=== PATIENT | female | born 1965 | race Two or more races ===

== ENCOUNTER → 2020-07-07 10:00 | Outpatient (BNVA) | payer MEDICAID, SELFPAY | PROVIDERS: Visit Provider Internal Medicine Endocrinology, Diabetes & Metabolism | DX: E11.65 Type 2 diabetes mellitus with hyperglycemia (principal); E11.319 Type 2 diabetes mellitus with unspecified diabetic retinopathy without macular edema; E11.21 Type 2 diabetes mellitus with diabetic nephropathy; Z79.4 Long term (current) use of insulin; E78.5 Hyperlipidemia, unspecified; I10 Essential (primary) hypertension; E87.1 Hypo-osmolality and hyponatremia; E53.8 Deficiency of other specified B group vitamins; E55.9 Vitamin D deficiency, unspecified; Z79.899 Other long term (current) drug therapy | CPT/HCPCS: 99212 ==

== ENCOUNTER 2020-07-13 07:31 | Outpatient (REF) | payer MEDICAID, SELFPAY ==
[2020-07-13 08:07] LABS: Estimated Average Glucose 171 mg/dL; Hemoglobin A1c % 7.6 %
[2020-07-13 08:18] LABS: Alanine Aminotransferase 21 U/L (0-31); Albumin Level 4.4 g/dL (3.5-5.0); Alkaline Phosphatase 71 U/L (39-117); Anion Gap 10 (12-20); Aspartate Amino Transferase 14 U/L (5-31); Bilirubin Total 0.7 mg/dL (0.0-1.0); Blood Urea Nitrogen 9 mg/dL (9-16); Calcium 9.1 mg/dL (8.4-10.2); Carbon Dioxide 29 mmol/L (22-29); Chloride 97 mmol/L (96-108); Cholesterol 165 mg/dL; Estimated Glomerular Filt Rate > 60; Glucose Fasting 139 mg/dL (60-99); HDL Cholesterol 70 mg/dL; LDL Cholesterol Calculated 79 mg/dl; Potassium 4.3 mmol/l (3.3-5.1); Sodium 132 mmol/L (135-145); Triglycerides 80 mg/dL
[2020-07-13 08:43] LABS: Creatinine Urine 30.77 mg/dL; Microalbum/Creatinine Ratio Ur 74.7 ug/mg cr
[2020-07-13 08:48] LABS: Vitamin B12 455 pg/mL (200-900)
[2020-07-14 19:22] LABS: LDL Cholesterol Direct 83 mg/dL (<100)
== END 2020-07-13 07:32 | disposition home or self-care (01) ==
LOC: HO.LAB 07:31
PROVIDERS: Visit Provider Internal Medicine Endocrinology, Diabetes & Metabolism
DX: E11.65 Type 2 diabetes mellitus with hyperglycemia (principal); E55.9 Vitamin D deficiency, unspecified
CPT/HCPCS: 80053; 80061; 82043; 82306; 82607; 83036; 83721

== ENCOUNTER 2021-02-10 10:38 | Outpatient (REF) | payer MEDICAID, SELFPAY ==
[2021-02-10 12:26] LABS: Hematocrit 33.8 % (37-47); Hemoglobin 11.6 g/dl (12.0-16.0); Mean Corpuscular HGB Conc 34.3 g/dl (31.0-35.0); Mean Corpuscular Hemoglobin 29.7 pg (27.0-33.0); Mean Corpuscular Volume 86.7 fL (80-98); Mean Platelet Volume 9.8 fL (9.4-12.3); Platelet Count 404 X10*3/uL (160-400); Red Cell Distribution Width 13.1 % (11.0-16.0); White Blood Count 7.5 X10*3/uL (4.8-10.8)
[2021-02-10 13:39] LABS: Vitamin B12 235 pg/mL (200-900)
[2021-02-10 13:42] LABS: Creatinine Urine 28.79 mg/dL; Microalbum/Creatinine Ratio Ur 17.3 ug/mg cr
[2021-02-10 13:43] LABS: Alanine Aminotransferase 23 U/L (0-31); Albumin Level 4.5 g/dL (3.5-5.0); Alkaline Phosphatase 70 U/L (39-117); Anion Gap 15 (12-20); Aspartate Amino Transferase 15 U/L (5-31); Bilirubin Total 0.4 mg/dL (0.0-1.0); Blood Urea Nitrogen 9 mg/dL (9-16); Calcium 9.8 mg/dL (8.4-10.2); Carbon Dioxide 25 mmol/L (22-29); Chloride 98 mmol/L (96-108); Cholesterol 160 mg/dL; Estimated Glomerular Filt Rate > 60; Glucose Random 103 mg/dL (60-115); HDL Cholesterol 63 mg/dL; LDL Cholesterol Calculated 75 mg/dl; Potassium 4.5 mmol/L (3.3-5.1); Sodium 133 mmol/L (135-145); Triglycerides 110 mg/dL
[2021-02-10 14:06] LABS: Free T4 (Free Thyroxine) 1.23 ng/dL (0.71-1.85); Thyroid Stimulating Hormone 0.54 uIU/mL (0.32-4.0)
[2021-02-11 09:27] LABS: LDL Cholesterol Direct 80 mg/dL (<100)
== END 2021-02-10 10:39 | disposition home or self-care (01) ==
LOC: HO.LAB 10:38
PROVIDERS: PCP Physician Assistant Medical; Visit Provider Internal Medicine Endocrinology, Diabetes & Metabolism
DX: E11.65 Type 2 diabetes mellitus with hyperglycemia (principal); E11.21 Type 2 diabetes mellitus with diabetic nephropathy; E78.5 Hyperlipidemia, unspecified; E87.1 Hypo-osmolality and hyponatremia; E53.8 Deficiency of other specified B group vitamins; E55.9 Vitamin D deficiency, unspecified; I10 Essential (primary) hypertension; Z79.4 Long term (current) use of insulin; Z71.3 Dietary counseling and surveillance
CPT/HCPCS: 36415; 80053; 80061; 82043; 82607; 82947; 83721; 84439; 84443; 85027; 99212

== ENCOUNTER → 2021-02-22 14:11 | Outpatient (BNVA) | payer MEDICAID, SELFPAY | PROVIDERS: PCP Physician Assistant Medical; Visit Provider Urology | DX: N39.0 Urinary tract infection, site not specified (principal) | CPT/HCPCS: 99212 ==

== ENCOUNTER → 2021-06-14 08:38 | Outpatient (BNVA) | payer MEDICAID, SELFPAY | PROVIDERS: PCP Physician Assistant Medical; Visit Provider Nurse Practitioner Gerontology | DX: E11.65 Type 2 diabetes mellitus with hyperglycemia (principal); E11.21 Type 2 diabetes mellitus with diabetic nephropathy; E78.5 Hyperlipidemia, unspecified; E53.8 Deficiency of other specified B group vitamins; E55.9 Vitamin D deficiency, unspecified; I10 Essential (primary) hypertension; Z79.4 Long term (current) use of insulin | CPT/HCPCS: 82947; 83036; 99212 ==

== ENCOUNTER 2021-07-05 08:29 | Outpatient (REF) | payer MEDICAID, SELFPAY ==
[2021-07-05 09:56] LABS: Alanine Aminotransferase 15 U/L (0-31); Albumin Level 4.5 g/dL (3.5-5.0); Alkaline Phosphatase 72 U/L (39-117); Anion Gap 10 (12-20); Aspartate Amino Transferase 14 U/L (5-31); Bilirubin Total 0.5 mg/dL (0.0-1.0); Blood Urea Nitrogen 10 mg/dL (9-16); Calcium 9.4 mg/dL (8.4-10.2); Carbon Dioxide 30 mmol/L (22-29); Chloride 98 mmol/L (96-108); Estimated Glomerular Filt Rate > 60; Glucose Fasting 145 mg/dL (60-99); Sodium 133 mmol/L (135-145); Total Protein 7.1 g/dL (6.5-8.0)
[2021-07-05 10:17] LABS: Vitamin D 25-OH Total 46.5 ng/mL (>30)
[2021-07-05 11:09] LABS: Vitamin B12 252 pg/mL (200-900)
== END 2021-07-05 08:30 | disposition home or self-care (01) ==
LOC: HO.LAB 08:29
PROVIDERS: PCP Physician Assistant Medical; Visit Provider Nurse Practitioner Gerontology
DX: E11.65 Type 2 diabetes mellitus with hyperglycemia (principal); E55.9 Vitamin D deficiency, unspecified
CPT/HCPCS: 36415; 80053; 82306; 82607

== ENCOUNTER 2021-08-23 09:19 | Outpatient (REF) | payer MEDICAID, SELFPAY ==
--- NOTE | ~2021-08-23 | MM_ITS ---
EXAMINATION: MM SCREENING DIGITAL BREAST TOMOSYNTHESIS, BILATERAL CLINICAL INFORMATION: Screening. Asymptomatic. The lifetime risk of breast cancer based on the Tyrer-Cuzick Model is 6%. COMPARISON: Mammography: 03/14/2018 (new baseline). TECHNIQUE: Digital breast tomosynthesis is performed in both the craniocaudal and mediolateral oblique views along with computer-aided detection (CAD). Synthesized 2D images are generated from the tomosynthesis. Additional exaggerated right CC view is provided. FINDINGS: There are scattered areas of fibroglandular density (ACR BI-RADS breast composition Category b). Breast tissue composition borders on heterogeneously dense fine fibronodular parenchymal pattern is similar to prior new baseline exam. There are no significant masses, abnormal calcifications, or other abnormalities. No interval mass or architectural abnormality or abnormal calcifications. The axilla and skin contours are unremarkable. No significant changes. MM/MM tomosynthesis screening BI IMPRESSION: No mammographic evidence of malignancy. ASSESSMENT: BI-RADS 2: Benign RECOMMENDATION: Routine annual mammography screening. This patient's information was entered into a reminder system with a target due date for their next mammogram.
== END 2021-08-23 09:20 | disposition home or self-care (01) ==
LOC: HO.MAMMO 09:19
PROVIDERS: Visit Provider Physician Assistant Medical
DX: Z12.31 Encounter for screening mammogram for malignant neoplasm of breast (principal)
CPT/HCPCS: 77063; 77067

== ENCOUNTER → 2021-10-04 09:42 | Outpatient (BNVA) | payer MEDICAID, SELFPAY | PROVIDERS: PCP Physician Assistant Medical | DX: N39.0 Urinary tract infection, site not specified (principal) | CPT/HCPCS: 99212 ==

== ENCOUNTER → 2022-01-10 11:17 | Outpatient (BNVA) | payer MEDICAID, SELFPAY | PROVIDERS: PCP Physician Assistant Medical; Visit Provider Nurse Practitioner Gerontology | DX: E11.65 Type 2 diabetes mellitus with hyperglycemia (principal); E11.21 Type 2 diabetes mellitus with diabetic nephropathy; E78.5 Hyperlipidemia, unspecified; E53.8 Deficiency of other specified B group vitamins; E55.9 Vitamin D deficiency, unspecified; I10 Essential (primary) hypertension; Z79.4 Long term (current) use of insulin; Z79.84 Long term (current) use of oral hypoglycemic drugs | CPT/HCPCS: 82947; 83036; 99212 ==

== ENCOUNTER 2022-01-17 07:34 | Outpatient (REF) | payer MEDICAID, SELFPAY ==
[2022-01-17 08:46] LABS: Alanine Aminotransferase 19 U/L (0-31); Albumin Level 4.3 g/dL (3.5-5.0); Alkaline Phosphatase 68 U/L (39-117); Anion Gap 12 (12-20); Aspartate Amino Transferase 14 U/L (5-31); Bilirubin Total 0.6 mg/dL (0.0-1.0); Blood Urea Nitrogen 8 mg/dL (9-16); Carbon Dioxide 28 mmol/L (22-29); Chloride 101 mmol/L (96-108); Cholesterol 165 mg/dL; Estimated Glomerular Filt Rate > 60; Glucose Fasting 150 mg/dL (60-99); HDL Cholesterol 66 mg/dL; LDL Cholesterol Calculated 86 mg/dl; Potassium 4.7 mmol/L (3.3-5.1); Sodium 136 mmol/L (135-145); Total Protein 7.2 g/dL (6.5-8.0); Triglycerides 67 mg/dL
[2022-01-17 09:09] LABS: Vitamin D 25-OH Total 41.8 ng/mL (>30)
[2022-01-17 10:57] LABS: Creatinine Urine 27.67 mg/dL; Microalbumin Urine < 5.0 mg/L
[2022-01-19 00:20] LABS: LDL Cholesterol Direct 79 mg/dL (<100)
== END 2022-01-17 07:35 | disposition home or self-care (01) ==
LOC: HO.LAB 07:34
PROVIDERS: Visit Provider Nurse Practitioner Gerontology
DX: E11.21 Type 2 diabetes mellitus with diabetic nephropathy (principal); E55.9 Vitamin D deficiency, unspecified
CPT/HCPCS: 36415; 80053; 80061; 82043; 82306; 83721

== ENCOUNTER → 2022-07-31 09:21 | Outpatient (BNVA) | payer MEDICAID, SELFPAY | PROVIDERS: PCP Physician Assistant Medical; Visit Provider Urology | DX: N39.0 Urinary tract infection, site not specified (principal) | CPT/HCPCS: 51798; 99212 ==

== ENCOUNTER 2022-08-25 09:05 | Outpatient (REF) | payer MEDICAID, SELFPAY ==
--- NOTE | ~2022-08-25 | MM_ITS ---
EXAMINATION: MM SCREENING DIGITAL BREAST TOMOSYNTHESIS, BILATERAL CLINICAL INFORMATION: Screening. Asymptomatic. The lifetime risk of breast cancer based on the Tyrer-Cuzick Model is 5.9%. COMPARISON: Mammography: August 23, 2021 and March 14, 2018 TECHNIQUE: Digital breast tomosynthesis is performed in both the craniocaudal and mediolateral oblique views along with computer-aided detection (CAD). Synthesized 2D images are generated from the tomosynthesis. FINDINGS: The breasts are extremely dense, which lowers the sensitivity of mammography (ACR BI-RADS breast composition Category d). There are no new significant masses, abnormal calcifications, or other abnormalities. MM/MM tomosynthesis screening BI IMPRESSION: No significant changes ASSESSMENT: BI-RADS 1: Negative RECOMMENDATION: Routine annual mammography screening. This patient's information was entered into a reminder system with a target due date for their next mammogram.
== END 2022-08-25 09:06 | disposition home or self-care (01) ==
LOC: HO.MAMMO 09:05
PROVIDERS: PCP Physician Assistant Medical; Visit Provider Physician Assistant Medical
DX: Z12.31 Encounter for screening mammogram for malignant neoplasm of breast (principal)
CPT/HCPCS: 77063; 77067

== ENCOUNTER → 2023-01-23 10:27 | Outpatient (BNVA) | payer OTHER, SELFPAY | PROVIDERS: PCP Physician Assistant Medical; Visit Provider Nurse Practitioner Family | DX: N39.0 Urinary tract infection, site not specified (principal); E11.65 Type 2 diabetes mellitus with hyperglycemia; E11.21 Type 2 diabetes mellitus with diabetic nephropathy; I10 Essential (primary) hypertension; E78.5 Hyperlipidemia, unspecified; Z79.4 Long term (current) use of insulin | CPT/HCPCS: 51798; 99212 ==

== ENCOUNTER 2023-02-26 09:44 | Outpatient (REF) | payer OTHER, SELFPAY ==
--- NOTE | ~2023-02-26 | US_ITS ---
EXAMINATION: US RETROPERITONEAL COMPLETE (RENAL) CLINICAL INFORMATION: Urinary tract infection, site not specified. COMPARISON: CT abdomen and pelvis without contrast 07/22/2018. TECHNIQUE: Real-time imaging of the kidneys and bladder. FINDINGS: RIGHT KIDNEY: 10.5 x 4.7 x 5.4 cm (SAG x AP x TRV). The kidney is normal in size, contour, and echogenicity. Renal cortical thickness is normal. No calculi or focal parenchymal lesions. No hydronephrosis. LEFT KIDNEY: 10.9 x 5.5 x 5.2 cm (SAG x AP x TRV). The kidney is normal in size, contour, and echogenicity. Renal cortical thickness is normal. No calculi or focal parenchymal lesions. No hydronephrosis. BLADDER: Well distended and normal. Bilateral ureteral jets are demonstrated. Prevoid bladder volume is 275 mL. Postvoid bladder volume is 276 mL. US/US retroperitoneal comp IMPRESSION: Normal-appearing kidneys. Postvoid volume of the bladder with larger than the prevoid volume indicative of the fact that the patient probably had difficulty voiding with a large postvoid residual.
== END 2023-02-26 09:45 | disposition home or self-care (01) ==
LOC: HO.US 09:44
PROVIDERS: PCP Physician Assistant Medical; Visit Provider Nurse Practitioner Family
DX: N39.0 Urinary tract infection, site not specified (principal)
CPT/HCPCS: 76770

== ENCOUNTER 2023-03-13 09:26 | Outpatient (AMB) | payer OTHER, SELFPAY ==
--- NOTE | 2023-03-13 09:38 | A.OFFVIS_ITS ---
Intake Intake Visit Reasons: 6w/US(SET) Intake Note: Patient is present for follow up recurrent uti/ultrasound (imaging 02/26) Urology Medications: macrobid, estrace cream Blood Thinner: none PVR: 7ml's Lime Burner Required: Yes Lime Burner Name: Altagracia [id number] Accompanied by: Spouse Allergies No Known Allergies [No Known Allergies*] Allergy (Verified 03/13/23 10:13) Medication List - Last Reconciled 03/13/23 by EPIFANIO Cartwright amlodipine 5 mg PO DAILY atorvastatin 10 mg PO BEDTIME 90 days blood sugar diagnostic (FreeStyle Lite Strips) four times a day cholecalciferol (vitamin D3) 50 mcg PO DAILY cyanocobalamin (vitamin B-12) 500 mcg sublingual .Every other Day 90 days dapagliflozin propanediol (Farxiga) 10 mg PO DAILY estradiol 0.01%(0.1mg/gram) vaginally 3 times a week; pea sized amount to urethra 3 times a week FreeStyle Lancets (lancets) 3 times a day NS insulin degludec (Tresiba FlexTouch U-100 insulin) 12 units (0.12 mL) subcut BEDTIME 90 days insulin lispro-aabc (Lyumjev KwikPen U-100 Insulin) 3 - 4 units (0.03 - 0.04 mL) subcut TID 90 days losartan 100 mg PO DAILY losartan 100 mg PO DAILY metformin 1,000 mg PO BID 90 days nitrofurantoin macrocrystal 50 mg PO BEDTIME 90 days pen needle, diabetic (BD Ultra-Fine Trisha Pen Needle) As directed four times a day HPI HPI Comments History of Present Illness Details Josy is a pleasant 57-year-old female patient of Dr. Poe who is accompanied by her at todays visit. She presents to the office today for a follow up her recurrent UTI. Of note, [facility] at which time a retroparitoneal ultrasound was ordered for further assessment and evaluation. She has a PMH of Diabetes, HTN, and dyslipidemia. When asked patient reports do be doing and feeling well. Recent retroperitoneal ultrasound results reviewed with the patient her today. Bilateral kidneys with no calculi, lesions, and or hydronephrosis. The bladder is well distended and normal. She reports since her last office visit here approximately 6 weeks ago feeling her symptoms of dysuria has since improved. She reports she continues with compliance of Estrace cream daily. She otherwise denies urinary urgency, urinary frequency, incontinence, nocturia, hematuria, foul smelling urine, changes to urinary stream, flank pain, fever, and or chills. In office urinalysis results reviewed with the patient today. PVR 7ml's. Discussed at length importance of managing diabetes for continuation in improvement in urinary symptoms as well as overall health and well-being. She otherwise offers no issues or concerns at this time. [facility] Medical History B12 deficiency Diabetes type 2, uncontrolled Diabetic nephropathy associated with type 2 diabetes mellitus Dyslipidemia Hypertension Hyponatremia senior care (current) use of insulin Vitamin D deficiency Surgical History Hx of cataract surgery Family History Father Gastric cancer Mother Diabetes Social History Household Members: Spouse Alcohol intake: never Patient Tobacco Use Status: Never used Tobacco Review of Systems Const All systems reviewed & are unremarkable except as noted in HPI and below Reports as per HPI Eyes Reports no additional complaints ENT Reports no additional complaints Card Reports no additional complaints Resp Reports no additional complaints GI Reports no additional complaints Reports as per HPI Musc Reports no additional complaints Neuro Reports no additional complaints Psych Reports no additional complaints Endo Reports as per HPI Butch/Lymph Reports no additional complaints Aller/Immun Reports no additional complaints Physical Exam Const General: cooperative, healthy appearing, comfortable, no acute distress, well developed, alert and awake Orientation/consciousness: patient oriented x3 Limitations: no limitations HEENT Head: Yes normal to inspection, Yes normocephalic and Yes atraumatic Ears: hearing grossly normal bilaterally Eyes General: appearance normal, both eyes and all related structures Neck Neck: Yes normal visual inspection and Yes trachea midline Chest Chest palpation & inspection: normal inspection of the chest Resp Effort & Inspection: normal respiratory effort and able to speak in complete sentences Cardio Rate: regular rate GI Inspection: Yes normal to inspection General: Yes no CVA tenderness Back/Spine/Pelvis Back: no CVA tenderness Skin General skin exam: no rashes or lesions noted Neuro General: patient oriented x3 Extrem General: Yes normal to inspection Psych Appearance: grossly normal and well kempt Mental Status: mental status grossly normal Speech and movement: Normal speech and movement present and Clear speech present Affect: normal affect Attitude: cooperative Thought process: Normal thought process present Thought content: Normal thought content present Insight: Fair insight present (Psych) Judgement: Fair judgement present (Psych) Office Procedures Post Void Residual Post Residual Void Post Void Residual (PVR): [id number] Void Residual by ultrasound Results AMB Urinalysis, Automated UA Leukoctes 0 Grabiel/uL Last Edit by [facility] on 03/13/23 09:52 UA Nitrite Negative Last Edit by [facility] on 03/13/23 09:52 UA Urobilinogen 0.2 mg/dL Last Edit by [facility] on 03/13/23 09:52 UA Protein 0 mg/dL Last Edit by [facility] on 03/13/23 09:52 UA pH 6.0 Last Edit by [facility] on 03/13/23 09:52 UA Blood 0 Terrell/uL Last Edit by [facility] on 03/13/23 09:52 UA Specific Hume 1.010 Last Edit by [facility] on 03/13/23 09:52 UA Ketone Negative Last Edit by [facility] on 03/13/23 09:52 UA Bilirubin 0 mg/dL Last Edit by [facility] on 03/13/23 09:52 UA Glucose 0 mg/dL Last Edit by [facility] on 03/13/23 09:52 Results Reviewed Results Reviewed: Laboratory Last Values Urine pH (Auto) 6.0 03/13/23 09:40 Specific Hume (Auto) 1.010 03/13/23 09:40 Urine Protein (Auto) 0 mg/dL 03/13/23 09:40 Glucose (UA)(Auto) 0 mg/dL 03/13/23 09:40 Urine Ketones (Auto) Negative 03/13/23 09:40 Urine Blood (Auto) 0 Terrell/uL 03/13/23 09:40 Urine Nitrite (Auto) Negative 03/13/23 09:40 Urine Bilirubin (Auto) 0 mg/dL 03/13/23 09:40 Urine Urobilinogen (Auto) 0.2 mg/dL 03/13/23 09:40 Leukocyte Esterase (Auto) 0 Grabiel/uL 03/13/23 09:40 Date of Service: 02/26/23 EXAMINATION: US RETROPERITONEAL COMPLETE (RENAL) FINDINGS: RIGHT KIDNEY: 10.5 x 4.7 x 5.4 cm (SAG x AP x TRV). The kidney is normal in size, contour, and echogenicity. Renal cortical thickness is normal. No calculi or focal parenchymal lesions. No hydronephrosis. LEFT KIDNEY: 10.9 x 5.5 x 5.2 cm (SAG x AP x TRV). The kidney is normal in size, contour, and echogenicity. Renal cortical thickness is normal. No calculi or focal parenchymal lesions. No hydronephrosis. BLADDER: Well distended and normal. Bilateral ureteral jets are demonstrated. Prevoid bladder volume is 275 mL. Postvoid bladder volume is 276 mL. IMPRESSION: Normal-appearing kidneys. Postvoid volume of the bladder with larger than the prevoid volume indicative of the fact that the patient probably had difficulty voiding with a large postvoid residual. Assessment & Plan Assessment & Plan (1) Recurrent UTI (urinary tract infection): Code(s): N39.0 - Urinary tract infection, site not specified (2) Dysuria: Code(s): R30.0 - Dysuria Plan In office urinalysis results reviewed with the patient and her today; as noted above. PVR 7 mL. Discussed recent retroperitoneal ultrasound results with the patient and her today; as noted above. Patient reports significant improvement in dysuria since her last office visit and denies any UTI like symptoms at this time. Discussed at length importance of managing diabetes for continuation and i mprovement in urinary symptoms as well as for overall health and well-being. Continue Estrace cream as discussed and prescribed. Discussed, educated, and encouraged to continue drinking plenty of water daily. Follow-up in 6 months with PVR; or sooner with any issues, concerns, and or questions. Orders: Orders AMB Urinalysis Automated Today Z13.9 - Encounter for screening, unspecified AMB Post Void Residual by ultrasound Today N39.0 - Urinary tract infection, site not specified Patient Instructions: The patient had an opportunity to ask questions regarding the treatment plan. All questions were answered. Physical exam, labs, and imaging were discussed and reviewed in detail. As well as risks, benefits, and discussion of treatment choices. No major barriers to understanding were identified. The patient expressed understanding and agreement with the above treatment plan. The patient was made aware they should contact our office by phone for worsening of their current condition, the appearance of new symptoms, or with any questions or concerns. Compliance is encouraged with any medications and follow up testing that is ordered. It is a privilege to be allowed the opportunity to participate in? your urological care.? Again, if you have any questions or concerns If you have any questions or concerns please do not hesitate to contact me. The office is [phone]. This note is constructed using voice recognition software. While every effort has been made to ensure accuracy animal husbandman errors may have been included. Yours sincerely, EPIFANIO Cartwright Coding Level of Care Code Est Pt Level 4 (80952) Diagnoses Recurrent UTI (urinary tract infection) N39.0 Dysuria R30.0 CPT Codes Post Residual Void - PVR CPT Code: 76532-Nujp Void Residual by ultrasound ([id number]) Time Spent (min) 40
== END 2023-03-13 10:29 | disposition home or self-care (01) ==
PROVIDERS: Visit Provider Nurse Practitioner Family
DX: N39.0 Urinary tract infection, site not specified (principal); R30.0 Dysuria
CPT/HCPCS: 99214

== ENCOUNTER → 2023-03-13 09:26 | Outpatient (BNVA) | payer OTHER, SELFPAY | PROVIDERS: Visit Provider Nurse Practitioner Family | DX: N39.0 Urinary tract infection, site not specified (principal); R30.0 Dysuria; E11.9 Type 2 diabetes mellitus without complications; I10 Essential (primary) hypertension; E78.5 Hyperlipidemia, unspecified; Z79.4 Long term (current) use of insulin; Z79.899 Other long term (current) drug therapy | CPT/HCPCS: 51798; 99212 ==

== ENCOUNTER → 2023-08-31 09:15 | Outpatient (BNV) | payer OTHER, SELFPAY | PROVIDERS: Visit Provider Radiology Diagnostic Radiology | DX: Z12.31 Encounter for screening mammogram for malignant neoplasm of breast (principal) | CPT/HCPCS: 77063; 77067 ==

== ENCOUNTER 2023-08-31 09:17 | Outpatient (REF) | payer OTHER, SELFPAY ==
--- NOTE | ~2023-08-31 | MM_ITS ---
EXAMINATION: MM SCREENING DIGITAL BREAST TOMOSYNTHESIS, BILATERAL CLINICAL INFORMATION: Screening. Asymptomatic. COMPARISON: Mammography: 08/25/2022, 08/23/2021, 03/14/2018. TECHNIQUE: Digital breast tomosynthesis is performed in both the craniocaudal and mediolateral oblique views along with computer-aided detection (CAD). Synthesized 2D images are generated from the tomosynthesis. FINDINGS: The breasts are heterogeneously dense, which may obscure small masses (ACR BI-RADS breast composition Category c). There are bilateral scattered punctate skin calcifications. There are no suspicious masses, suspicious grouped calcifications, or areas of architectural distortion in either breast. The parenchymal pattern is stable from prior exams. MM/MM tomosynthesis screening BI IMPRESSION: No mammographic evidence of malignancy. ASSESSMENT: BI-RADS BI-RADS 1 - Negative RECOMMENDATION: Routine annual mammography screening. 1 year F/U This examination should not preclude the clinical evaluation of a suspicious palpable abnormality. This patient's information was entered into a reminder system with a target due date for their next mammogram.
== END 2023-08-31 09:18 | disposition home or self-care (01) ==
LOC: HO.MAMMO 09:17
PROVIDERS: Visit Provider Physician Assistant Medical
DX: Z12.31 Encounter for screening mammogram for malignant neoplasm of breast (principal)
CPT/HCPCS: 77063; 77067

== ENCOUNTER 2023-10-15 10:48 | Outpatient (REF) | payer OTHER, SELFPAY ==
[2023-10-15 13:01] LABS: Appearance Urine Clear; Color Urine Yellow; Glucose Urine UA >=1000 mg/dL (Negative); Leukocyte Esterase Urine Moderate (2+) (Negative); Nitrite Urine Positive (Negative); Specific Gravity - Urine 1.015 (1.005-1.025); UMIC TRIGGER UA YES; Urine Blood Negative (Negative); Urine Ketones Negative (Negative); Urine Protein Negative (Neg-Trace)
[2023-10-15 13:05] LABS: Bacteria Urine 4+ (None Seen); Hyaline Casts Urine 0-2 /LPF (0-2); RBC Urine 0-2 /HPF (0-2); Squamous Epithelial Cell Urine 0-2 /HPF (0-2); WBC Urine 21-50 /HPF (0-5)
== END 2023-10-15 10:49 | disposition home or self-care (01) ==
LOC: HO.LAB 10:48
PROVIDERS: Visit Provider Nurse Practitioner Family
DX: N39.0 Urinary tract infection, site not specified (principal)
CPT/HCPCS: 81001; 87086; 87088; 87186

== ENCOUNTER 2023-10-17 10:21 | Outpatient (AMB) | payer OTHER, SELFPAY ==
--- NOTE | 2023-10-17 10:36 | MHC.OFFVIS ---
Intake Intake Visit Reasons: F/U Intake Note: Patient is present for follow up recurrent uti and dysuria Urology Medications: estrace cream Blood Thinner: none PVR: 264 Structural Design Engineer Required: Yes Structural Design Engineer Name: [id number] Accompanied by: Allergies No Known Allergies [No Known Allergies*] Allergy (Verified 10/17/23 21:00) Medication List - Last Reconciled 10/17/23 by MC Cartwright-ALAN amlodipine 5 mg PO DAILY atorvastatin 10 mg PO BEDTIME 90 days blood sugar diagnostic (FreeStyle Lite Strips) four times a day cholecalciferol (vitamin D3) 50 mcg PO DAILY cyanocobalamin (vitamin B-12) 500 mcg sublingual .Every other Day 90 days dapagliflozin propanediol (Farxiga) 10 mg PO DAILY estradiol (Vagifem) 10 mcg vaginal 2XW 30 days FreeStyle Lancets (lancets) 3 times a day NS insulin degludec (Tresiba FlexTouch U-100 insulin) 12 units (0.12 mL) subcut BEDTIME 90 days insulin lispro-aabc (Lyumjev KwikPen U-100 Insulin) 3 - 4 units (0.03 - 0.04 mL) subcut TID 90 days losartan 100 mg PO DAILY losartan 100 mg PO DAILY metformin 1,000 mg PO BID 90 days nitrofurantoin macrocrystal 50 mg PO BEDTIME 90 days pen needle, diabetic (BD Ultra-Fine Trisha Pen Needle) As directed four times a day sulfamethoxazole-trimethoprim 800-160 mg (Bactrim DS) 1 tab PO BID 7 days HPI HPI Comments History of Present Illness Details Josy is a pleasant 58-year-old Macedonian speaking female patient of Dr. Poe who is accompanied by her at todays visit. She has a PMH of Diabetes, HTN, and dyslipidemia, vitamin-D deficiency, vitamin B12 deficiency, hyponatremia. She presents to the office today for a follow up her recurrent UTI. Of note, patient called the office earlier this week as she has been experiencing dysuria and bladder pressure at which time a urinalysis was ordered for further assessment evaluation. Urine culture results obtained this morning and reviewed with the patient today. E coli susceptible to Bactrim, gentamicin, and ceftriaxone. Resistant to ampicillin and nitrofurantoin. Discussed discontinuation of nitrofurantoin that was initated after sample was obtained and initiation of Bactrim per urine culture results. She does continue to report dysuria and bladder pressure. She otherwise denies incontinence, nocturia, hematuria, foul smelling urine, changes to urinary stream, flank pain, fever, and or chills. When asked she reports she has since stopped Estrace cream as discussed and prescribed as she feels this causes her vaginal itching. Previous workup has included a retroperitoneal ultrasound noting bilateral kidneys with no calculi, lesions, and or hydronephrosis. The bladder is well distended and normal. In office urinalysis results reviewed with the patient today. PVR 264ml's. Discussed at length importance of managing diabetes for continuation in improvement in urinary symptoms as well as overall health and well-being. Discussed at length causes and affects of incomplete bladder emptying. She otherwise offers no issues or concerns at this time. 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 Diabetes type 2, uncontrolled Dyslipidemia Surgical History Hx of cataract surgery Family History Father Gastric cancer Mother Diabetes Social History Household Members: Spouse Alcohol intake: never Patient Tobacco Use Status: Never used Tobacco Review of Systems Const All systems reviewed & are unremarkable except as noted in HPI and below Reports as per HPI Eyes Reports no additional complaints ENT Reports no additional complaints Card Reports no additional complaints Resp Reports no additional complaints GI Reports no additional complaints Reports as per HPI Musc Reports no additional complaints Neuro Reports no additional complaints Psych Reports no additional complaints Endo Reports as per HPI Butch/Lymph Reports no additional complaints Aller/Immun Reports no additional complaints Physical Exam Const General: cooperative, healthy appearing, comfortable, no acute distress, well developed, alert and awake Orientation/consciousness: patient oriented x3 Limitations: no limitations HEENT Head: Yes normal to inspection, Yes normocephalic and Yes atraumatic Ears: hearing grossly normal bilaterally Eyes General: appearance normal, both eyes and all related structures Neck Neck: Yes normal visual inspection and Yes trachea midline Chest Chest palpation & inspection: normal inspection of the chest Resp Effort & Inspection: normal respiratory effort and able to speak in complete sentences Cardio Rate: regular rate GI Inspection: Yes normal to inspection General: Yes no CVA tenderness Back/Spine/Pelvis Back: no CVA tenderness Skin General skin exam: no rashes or lesions noted Neuro General: patient oriented x3 Extrem General: Yes normal to inspection Psych Appearance: grossly normal and well kempt Mental Status: mental status grossly normal Speech and movement: Normal speech and movement present and Clear speech present Affect: normal affect Attitude: cooperative Thought process: Normal thought process present Thought content: Normal thought content present Insight: Fair insight present (Psych) Judgement: Fair judgement present (Psych) Office Procedures Post Void Residual Post Residual Void Post Void Residual (PVR): 0 37938-Pwqa Void Residual by ultrasound Results AMB Urinalysis, Automated UA Leukoctes 15 Grabiel/uL Last Edit by Sabrina Villaseñor CMA on 10/17/23 10:48 UA Nitrite Negative Last Edit by Sabrina Villaseñor CMA on 10/17/23 10:48 UA Urobilinogen 0.2 mg/dL Last Edit by Sabrina Villaseñor CMA on 10/17/23 10:48 UA Protein 0 mg/dL Last Edit by Sabrina Villaseñor CMA on 10/17/23 10:48 UA pH 6.0 Last Edit by Sabrina Villaseñor CMA on 10/17/23 10:48 UA Blood 0 Terrell/uL Last Edit by Sabrina Villaseñor CMA on 10/17/23 10:48 UA Specific [place] 1.010 Last Edit by Sabrina Villaseñor CMA on 10/17/23 10:48 UA Ketone Negative Last Edit by Sabrina Villaseñor CMA on 10/17/23 10:48 UA Bilirubin 0 mg/dL Last Edit by Sabrina Villaseñor CMA on 10/17/23 10:48 UA Glucose 1000 mg/dL Last Edit by Sabrina Villaseñor [facility] on 10/17/23 10:48 Results Reviewed Results Reviewed: Laboratory Last Values Urine pH (Auto) 6.0 10/17/23 10:38 Specific [place] (Auto) 1.010 10/17/23 10:38 Urine Protein (Auto) 0 mg/dL 10/17/23 10:38 Glucose (UA)(Auto) 1000 mg/dL 10/17/23 10:38 Urine Ketones (Auto) Negative 10/17/23 10:38 Urine Blood (Auto) 0 Terrell/uL 10/17/23 10:38 Urine Nitrite (Auto) Negative 10/17/23 10:38 Urine Bilirubin (Auto) 0 mg/dL 10/17/23 10:38 Urine Urobilinogen (Auto) 0.2 mg/dL 10/17/23 10:38 Leukocyte Esterase (Auto) 15 Grabiel/uL 10/17/23 10:38 Assessment & Plan Assessment & Plan (1) Dysuria: Code(s): R30.0 - Dysuria (2) Recurrent UTI (urinary tract infection): Code(s): N39.0 - Urinary tract infection, site not specified (3) Sensation of pressure in bladder area: Code(s): R39.89 - Other symptoms and signs involving the genitourinary system (4) Incomplete bladder emptying: Code(s): R33.9 - Retention of urine, unspecified Plan In office urinalysis results reviewed with the patient and her today; as noted above. PVR 264 mL. Prophylactic Macrobid as discussed. Stop Macrobid 100 mg Start Bactrim as discussed and prescribed. Start Vagifem as discussed and prescribed. Stop Estrace cream as patient reports she has not using this; discussed possible vaginal itching related to glucosuria Discussed at length potential causes and affects of incomplete bladder emptying. Discussed at length importance of managing diabetes for continuation and improvement in urinary symptoms as well as for overall health and well-being. Discussed UTI prevention with D mannose supplement, vitamin-C, increasing fluid intake, behavioral therapy with timed voiding, perineal hygiene and postcoital voiding, and management of constipation with stool softeners and increased fiber intake. Follow-up in 1 month with PVR; or sooner with any issues, concerns, and or questions. Orders: Orders AMB Urinalysis Automated Today R33.9 - Retention of urine, unspecified AMB Post Void Residual by ultrasound Today R33.9 - Retention of urine, unspecified Medications: New sulfamethoxazole-trimethoprim 800-160 mg (Bactrim DS) Hold prophylactic dose while on treatment dose 1 tab PO BID 7 days 14 tabs 0RF N39.0 - Urinary tract infection, site not specified estradiol (Vagifem) 10 mcg vaginal 2XW 30 days 9 tabs 4RF Discontinued estradiol 0.01%(0.1mg/gram) Discontinued Reason: Doctor's Order vaginally 3 times a week; pea sized amount to urethra 3 times a week 42.5 grams 2RF nitrofurantoin macrocrystal must administer with a meal/food Discontinued Reason: Doctor's Order 100 mg PO BID 10 days 20 caps 0RF N39.0 - Urinary tract infection, site not specified Patient Instructions: The patient had an opportunity to ask questions regarding the treatment plan. All questions were answered. Physical exam, labs, and imaging were discussed and reviewed in detail. As well as risks, benefits, and discussion of treatment choices. No major barriers to understanding were identified. The patient expressed understanding and agreement with the above treatment plan. The patient was made aware they should contact our office by phone for worsening of their current condition, the appearance of new symptoms, or with any questions or concerns. Compliance is encouraged with any medications and follow up testing that is ordered. It is a privilege to be allowed the opportunity to participate in? your urological care.? Again, if you have any questions or concerns If you have any questions or concerns please do not hesitate to contact me. The office is [phone]. This note is constructed using voice recognition software. While every effort has been made to ensure accuracy pyrometer operator errors may have been included. Yours sincerely, EPIFANIO Cartwright Coding Level of Care Code Est Pt Level 4 (78510) Diagnoses Dysuria R30.0 Recurrent UTI (urinary tract infection) N39.0 Sensation of pressure in bladder area R39.89 Incomplete bladder emptying R33.9 CPT Codes Post Residual Void - PVR CPT Code: 35088-Nigr Void Residual by ultrasound ([id number])
== END 2023-10-17 11:00 | disposition home or self-care (01) ==
LOC: HO.HUSH 10:21
PROVIDERS: Visit Provider Nurse Practitioner Family
DX: R30.0 Dysuria (principal); N39.0 Urinary tract infection, site not specified; R39.89 Other symptoms and signs involving the genitourinary system; R33.9 Retention of urine, unspecified
CPT/HCPCS: 99214

== ENCOUNTER → 2023-10-17 10:21 | Outpatient (BNVA) | payer OTHER, SELFPAY | PROVIDERS: Visit Provider Nurse Practitioner Family | DX: R30.0 Dysuria (principal); R39.89 Other symptoms and signs involving the genitourinary system; R33.9 Retention of urine, unspecified; N39.0 Urinary tract infection, site not specified | CPT/HCPCS: 51798; 81003; 99212 ==

== ENCOUNTER 2023-11-21 13:50 | Outpatient (AMB) | payer OTHER, SELFPAY ==
--- NOTE | 2023-11-21 14:02 | A.OFFVIS_ITS ---
Intake Intake Visit Reasons: 1m/PVR Intake Note: Patient is present for follow up recurrent uti and dysuria Urology Medications: vagifem Blood Thinner: none PVR: 0ml's Automatic Lump Making Machine Tender Required: Yes Automatic Lump Making Machine Tender Name: Anahi Accompanied by: Allergies No Known Allergies [No Known Allergies*] Allergy (Verified 11/21/23 20:17) Medication List - Last Reconciled 11/21/23 by MC Cartwright-ALAN amlodipine 5 mg PO DAILY atorvastatin 10 mg PO BEDTIME 90 days blood sugar diagnostic (FreeStyle Lite Strips) four times a day cholecalciferol (vitamin D3) 50 mcg PO DAILY cyanocobalamin (vitamin B-12) 500 mcg sublingual .Every other Day 90 days dapagliflozin propanediol (Farxiga) 10 mg PO DAILY estradiol (Vagifem) 10 mcg vaginal 2XW 30 days FreeStyle Lancets (lancets) 3 times a day NS insulin degludec (Tresiba FlexTouch U-100 insulin) 12 units (0.12 mL) subcut BEDTIME 90 days insulin lispro-aabc (Lyumjev KwikPen U-100 Insulin) 3 - 4 units (0.03 - 0.04 mL) subcut TID 90 days losartan 100 mg PO DAILY losartan 100 mg PO DAILY metformin 1,000 mg PO BID 90 days mirabegron ER (Myrbetriq) 25 mg PO DAILY 30 days nitrofurantoin macrocrystal 50 mg PO BEDTIME 90 days pen needle, diabetic (BD Ultra-Fine Trisha Pen Needle) As directed four times a day HPI HPI Comments History of Present Illness Details Josy is a pleasant 58-year-old Japanese speaking female patient of Dr. Poe who is accompanied by her at todays visit. She has a PMH of Diabetes, HTN, and dyslipidemia, vitamin-D deficiency, vitamin B12 deficiency, hyponatremia. She presents to the office today for a follow up her recurrent UTI. Of note, patient was seen approximately 1 month ago at which time she was treated for a urinary tract infection with Bactrim. In discussion with the patient today she reports having completed antibiotic therapy however continues with urinary urgency, urinary frequency, and bladder pain. In office urinalysis results reviewed with the patient today 1+ leukocytes negative nitrates. 3+ glucose. Discussed at length potential for post UTI syndrome versus glucosuria given lower urinary tract symptoms patient is experiencing. When asked she continues with Vagifem as prescribed as well as prophylactic antibiotic therapy of 50 mg of Macrobid daily. Discussed at length potential causes for recurrent urinary tract infections. Previous workup has included a retroperitoneal ultrasound noting bilateral kidneys with no calculi, lesions, and or hydronephrosis. The bladder is well distended and normal. PVR today 0 mL. She otherwise denies incontinence, nocturia, hematuria, foul smelling urine, changes to urinary stream, flank pain, fever, and or chills. Discussed at length importance of managing diabetes for continuation in improvement in urinary symptoms as well as overall health and well-being. She otherwise offers no issues or concerns at this time. 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 Diabetes type 2, uncontrolled Dyslipidemia Surgical History Hx of cataract surgery Family History Father Gastric cancer Mother Diabetes Social History Household Members: Spouse Alcohol intake: never Patient Tobacco Use Status: Never used Tobacco Review of Systems Const All systems reviewed & are unremarkable except as noted in HPI and below Reports as per HPI Eyes Reports no additional complaints ENT Reports no additional complaints Card Reports no additional complaints Resp Reports no additional complaints GI Reports no additional complaints Reports as per HPI Musc Reports no additional complaints Neuro Reports no additional complaints Psych Reports no additional complaints Endo Reports as per HPI Butch/Lymph Reports no additional complaints Aller/Immun Reports no additional complaints Physical Exam Const General: cooperative, healthy appearing, comfortable, no acute distress, well developed, alert and awake Orientation/consciousness: patient oriented x3 Limitations: no limitations HEENT Head: Yes normal to inspection, Yes normocephalic and Yes atraumatic Ears: hearing grossly normal bilaterally Eyes General: appearance normal, both eyes and all related structures Neck Neck: Yes normal visual inspection and Yes trachea midline Chest Chest palpation & inspection: normal inspection of the chest Resp Effort & Inspection: normal respiratory effort and able to speak in complete sentences Cardio Rate: regular rate GI Inspection: Yes normal to inspection General: Yes no CVA tenderness Back/Spine/Pelvis Back: no CVA tenderness Skin General skin exam: no rashes or lesions noted Neuro General: patient oriented x3 Extrem General: Yes normal to inspection Psych Appearance: grossly normal and well kempt Mental Status: mental status grossly normal Speech and movement: Normal speech and movement present and Clear speech present Affect: normal affect Attitude: cooperative Thought process: Normal thought process present Thought content: Normal thought content present Insight: Fair insight present (Psych) Judgement: Fair judgement present (Psych) Office Procedures Post Void Residual Post Residual Void Post Void Residual (PVR): 0 [id number]-[id number] Void Residual by ultrasound Results AMB Urinalysis, Automated UA Leukoctes 70 Grabiel/uL Last Edit by [employer] on 11/21/23 14:29 UA Nitrite Negative Last Edit by [employer] on 11/21/23 14:29 UA Urobilinogen 3.5 mg/dL Last Edit by [employer] on 11/21/23 14:29 UA Protein 0 mg/dL Last Edit by [employer] on 11/21/23 14:29 UA pH 6.0 Last Edit by [employer] on 11/21/23 14:29 UA Blood 0 Terrell/uL Last Edit by [employer] on 11/21/23 14:29 UA Specific [place] 1.010 Last Edit by [employer] on 11/21/23 14:29 UA Ketone Negative Last Edit by [employer] on 11/21/23 14:29 UA Bilirubin 0 mg/dL Last Edit by [employer] on 11/21/23 14:29 UA Glucose 1000 mg/dL Last Edit by [employer] on 11/21/23 14:29 Results Reviewed Results Reviewed: Laboratory Last Values Urine pH (Auto) 6.0 11/21/23 14:12 Specific [place] (Auto) 1.010 11/21/23 14:12 Urine Protein (Auto) 0 mg/dL 11/21/23 14:12 Glucose (UA)(Auto) 1000 mg/dL 11/21/23 14:12 Urine Ketones (Auto) Negative 11/21/23 14:12 Urine Blood (Auto) 0 Terrell/uL 11/21/23 14:12 Urine Nitrite (Auto) Negative 11/21/23 14:12 Urine Bilirubin (Auto) 0 mg/dL 11/21/23 14:12 Urine Urobilinogen (Auto) 3.5 mg/dL 11/21/23 14:12 Leukocyte Esterase (Auto) 70 Grabiel/uL 11/21/23 14:12 Assessment & Plan Assessment & Plan (1) Sensation of pressure in bladder area: Code(s): R39.89 - Other symptoms and signs involving the genitourinary system (2) Recurrent UTI (urinary tract infection): Code(s): N39.0 - Urinary tract infection, site not specified (3) Urinary frequency: Code(s): R35.0 - Frequency of micturition (4) Urinary urgency: Code(s): R39.15 - Urgency of urination Plan In office urinalysis results reviewed with the patient today; will send urine for microgen for further assessment and evaluation. PVR 0 mL. Discussed at length potential causes for lower urinary tract symptoms patient is experiencing. Start Myrbetriq as discussed and prescribed. Continue Vagifem as discussed and prescribed. Continue prophylactic antibiotic therapy as discussed and prescribed. Discussed at length importance of managing diabetes for improvement in lower urinary tract symptoms. Discussed possible near future in office cystoscopy for further assessment evaluation. Discussed UTI prevention with D mannose supplement, vitamin-C, increasing fluid intake, behavioral therapy with timed voiding, perineal hygiene and postcoital voiding, and management of constipation with stool softeners and increased fiber intake. Follow-up in 1-2 months with PVR; or sooner with any issues, concerns, and or questions. Orders: Orders AMB Urinalysis Automated Today Z13.9 - Encounter for screening, unspecified AMB Post Void Residual by ultrasound Today R33.9 - Retention of urine, unspecified Medications: New mirabegron ER (Myrbetriq) 25 mg PO DAILY 30 days 30 tabs 1RF N30.10 - Interstitial cystitis (chronic) without hematuria, N32.81 - Overactive bladder, R35.1 - Nocturia, R39.15 - Urgency of urination Refilled nitrofurantoin macrocrystal must administer with a meal/food 50 mg PO BEDTIME 90 days 90 caps 1RF estradiol (Vagifem) 10 mcg vaginal 2XW 30 days 9 tabs 4RF Patient Instructions: The patient had an opportunity to ask questions regarding the treatment plan. All questions were answered. Physical exam, labs, and imaging were discussed and reviewed in detail. As well as risks, benefits, and discussion of treatment choices. No major barriers to understanding were identified. The patient expressed understanding and agreement with the above treatment plan. The patient was made aware they should contact our office by phone for worsening of their current condition, the appearance of new symptoms, or with any questions or concerns. Compliance is encouraged with any medications and follow up testing that is ordered. It is a privilege to be allowed the opportunity to participate in? your urological care.? Again, if you have any questions or concerns If you have any questions or concerns please do not hesitate to contact me. The office is [phone]. This note is constructed using voice recognition software. While every effort has been made to ensure accuracy cleaning porter errors may have been included. Yours sincerely, EPIFANIO Cartwright Coding Level of Care Code Est Pt Level 4 (07736) Diagnoses Sensation of pressure in bladder area R39.89 Recurrent UTI (urinary tract infection) N39.0 Urinary frequency R35.0 Urinary urgency R39.15 CPT Codes Post Residual Void - PVR CPT Code: 42974-Swck Void Residual by ultrasound ([id number])
== END 2023-11-21 15:03 | disposition home or self-care (01) ==
PROVIDERS: Visit Provider Nurse Practitioner Family
DX: R39.89 Other symptoms and signs involving the genitourinary system (principal); N39.0 Urinary tract infection, site not specified; R35.0 Frequency of micturition; R39.15 Urgency of urination
CPT/HCPCS: 99214

== ENCOUNTER → 2023-11-21 13:50 | Outpatient (BNVA) | payer OTHER, SELFPAY | PROVIDERS: Visit Provider Nurse Practitioner Family | DX: R39.89 Other symptoms and signs involving the genitourinary system (principal); N39.0 Urinary tract infection, site not specified; R35.0 Frequency of micturition; R39.15 Urgency of urination | CPT/HCPCS: 51798; 81003; 99212 ==

== ENCOUNTER 2024-01-25 08:29 | Outpatient (AMB) | payer OTHER, SELFPAY ==
--- NOTE | 2024-01-25 08:32 | A.OFFVIS_ITS ---
Intake Visit Reasons: 2m/PVR Intake Note: Patient is present for follow up recurrent uti and dysuria Urology Medications: myrbetriq and macrobid Blood Thinner: none PVR: 72ml's Implementation Director Required: Yes Accompanied by: Allergies No Known Allergies [No Known Allergies*] Allergy (Verified 01/25/24 08:58) Medication List - Last Reconciled 01/25/24 by NAOMY CartwrightP-BC amlodipine 5 mg PO DAILY atorvastatin 10 mg PO BEDTIME 90 days blood sugar diagnostic (FreeStyle Lite Strips) four times a day cholecalciferol (vitamin D3) 50 mcg PO DAILY cyanocobalamin (vitamin B-12) 500 mcg sublingual .Every other Day 90 days dapagliflozin propanediol (Farxiga) 10 mg PO DAILY estradiol (Vagifem) 10 mcg vaginal 2XW 30 days FreeStyle Lancets (lancets) 3 times a day NS insulin degludec (Tresiba FlexTouch U-100 insulin) 12 units (0.12 mL) subcut BEDTIME 90 days insulin lispro-aabc (Lyumjev KwikPen U-100 Insulin) 3 - 4 units (0.03 - 0.04 mL) subcut TID 90 days losartan 100 mg PO DAILY metformin 1,000 mg PO BID 90 days mirabegron ER (Myrbetriq) 25 mg PO DAILY 90 days nitrofurantoin macrocrystal 50 mg PO BEDTIME 90 days pen needle, diabetic (BD Ultra-Fine Trisha Pen Needle) As directed four times a day HPI Comments Details: Josy is a pleasant 58-year-old South African speaking female patient of Dr. Poe who is accompanied by her at todays visit. She has a PMH of Diabetes, HTN, and dyslipidemia, vitamin-D deficiency, vitamin B12 deficiency, hyponatremia. She presents to the office today for a follow up her recurrent UTI. Of note, nathaniel albarado was seen approximately 2 months ago month ago at which time she was started on Myrbetriq for lower urinary tract symptoms and her urine was sent out for further microgen testing. Microgen 11/24 noted E coli, prevotella bivia,, and gardnerella vaginalis. She has since completed flagyl 375 mg BID x 7 days and bactrim DS BID x 14 days. In discussion with the patient today she reports noting significant improvement in urinary urgency, urinary frequency and bladder pain she had been experiencing. In office urinalysis results reviewed with the patient today 1+ leukocytes negative nitrates, and 3+ glucosuria. PVR 72 mL. When asked she reports compliance with Vagifem and prophylactic antibiotic therapy as prescribed. She currently denies any bothersome urinary issues or concerns. She becomes tearful for in discussing her sister who is not doing well and has issues with her liver. She discusses her upcoming travel to [place]. Previous workup has included a retroperitoneal ultrasound noting bilateral kidneys with no calculi, lesions, and or hydronephrosis. The bladder is well distended and normal. PVR today 0 mL. She otherwise denies incontinence, nocturia, hematuria, foul smelling urine, changes to urinary stream, flank pain, fever, and or chills. Discussed at length importance of managing diabetes for continuation in improvement in urinary symptoms as well as overall health and well-being. She otherwise offers no issues or concerns at this time. 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 Diabetes type 2, uncontrolled Dyslipidemia Surgical History Hx of cataract surgery Family History Father Gastric cancer Mother Diabetes Social History Household Members: Spouse Alcohol intake: never Patient Tobacco Use Status: Never used Tobacco Review of Systems Const All systems reviewed & are unremarkable except as noted in HPI and below Reports as per HPI Eyes Reports no additional complaints ENT Reports no additional complaints Card Reports no additional complaints Resp Reports no additional complaints GI Reports no additional complaints Reports as per HPI Musc Reports no additional complaints Neuro Reports no additional complaints Psych Reports no additional complaints Endo Reports as per HPI Butch/Lymph Reports no additional complaints Aller/Immun Reports no additional complaints Physical Exam Const General: cooperative, healthy appearing, comfortable, no acute distress, well developed, alert, awake and well groomed Orientation/consciousness: patient oriented x3 Limitations: no limitations HEENT Head: Yes normal to inspection, Yes normocephalic and Yes atraumatic Ears: hearing grossly normal bilaterally Eyes General: appearance normal, both eyes and all related structures Neck Neck: Yes normal visual inspection and Yes trachea midline Chest Chest palpation & inspection: normal inspection of the chest Resp Effort & Inspection: normal respiratory effort and able to speak in complete sentences Cardio Rate: regular rate GI Inspection: Yes normal to inspection General: Yes no CVA tenderness Back/Spine/Pelvis Back: no CVA tenderness Skin General skin exam: no rashes or lesions noted Neuro General: patient oriented x3 Extrem General: Yes normal to inspection Psych Appearance: grossly normal and well kempt Mental Status: mental status grossly normal Speech and movement: Normal speech and movement present and Clear speech present Affect: normal affect and Sad affect present Attitude: cooperative Thought process: Normal thought process present Thought content: Normal thought content present Insight: Fair insight present (Psych) Judgement: Fair judgement present (Psych) Office Procedures Post Void Residual Post Residual Void Post Void Residual (PVR): 72 82069-Hbyq Void Residual by ultrasound Results AMB Urinalysis, Automated UA Leukoctes 70 Grabiel/uL Last Edit by Al[employer] on 01/25/24 08:50 UA Nitrite Negative Last Edit by Algotoch[employer] on 01/25/24 08:50 UA Urobilinogen 0.2 mg/dL Last Edit by Al[employer] on 01/25/24 08:50 UA Protein 0 mg/dL Last Edit by Al[employer] on 01/25/24 08:50 UA pH 6.0 Last Edit by Al[employer] on 01/25/24 08:50 UA Blood 10 Terrell/uL Last Edit by Algotoch[employer] on 01/25/24 08:50 UA Specific [place] 1.010 Last Edit by Algotoch[employer] on 01/25/24 08:50 UA Ketone Negative Last Edit by Algotoch[employer] on 01/25/24 08:50 UA Bilirubin 0 mg/dL Last Edit by Algotoch[employer] on 01/25/24 08:50 UA Glucose 1000 mg/dL Last Edit by Algotoch[employer] on 01/25/24 08:50 Results Reviewed Results Reviewed: Laboratory Last Values Urine pH (Auto) 6.0 01/25/24 08:39 Specific [place] (Auto) 1.010 01/25/24 08:39 Urine Protein (Auto) 0 mg/dL 01/25/24 08:39 Glucose (UA)(Auto) 1000 mg/dL 01/25/24 08:39 Urine Ketones (Auto) Negative 01/25/24 08:39 Urine Blood (Auto) 10 Terrell/uL 01/25/24 08:39 Urine Nitrite (Auto) Negative 01/25/24 08:39 Urine Bilirubin (Auto) 0 mg/dL 01/25/24 08:39 Urine Urobilinogen (Auto) 0.2 mg/dL 01/25/24 08:39 Leukocyte Esterase (Auto) 70 Grabiel/uL 01/25/24 08:39 Assessment & Plan Assessment & Plan (1) Sensation of pressure in bladder area: Code(s): R39.89 - Other symptoms and signs involving the genitourinary system Category: Medical (2) Recurrent UTI (urinary tract infection): Code(s): N39.0 - Urinary tract infection, site not specified Category: Medical (3) Urinary frequency: Code(s): R35.0 - Frequency of micturition Category: Medical (4) Urinary urgency: Code(s): R39.15 - Urgency of urination Category: Medical Plan In office urinalysis results reviewed with the patient today; as noted above. PVR 72 mL. Discussed at length potential causes for lower urinary tract symptoms patient was experiencing. Continue Myrbetriq as discussed and prescribed; refill provided Continue Vagifem as discussed and prescribed; refill provided Continue prophylactic antibiotic therapy as discussed and prescribed; refill provided Discussed at length importance of managing diabetes for improvement in lower urinary tract symptoms. Discussed possible near future in office cystoscopy for further assessment evaluation if symptoms arise and or worsen Discussed UTI prevention with D mannose supplement, vitamin-C, increasing fluid intake, behavioral therapy with timed voiding, perineal hygiene and postcoital voiding, and management of constipation with stool softeners and increased fiber intake. Follow-up in3 months with PVR; or sooner with any issues, concerns, and or questions. Orders: Orders AMB Urinalysis Automated Today Z13.9 - Encounter for screening, unspecified AMB Post Void Residual by ultrasound Today R39.15 - Urgency of urination Medications: Changed From mirabegron ER (Myrbetriq) 25 mg PO DAILY 30 days 30 tabs 1RF N30.10 - Interstitial cystitis (chronic) without hematuria, N32.81 - Overactive bladder, R35.1 - Nocturia, R39.15 - Urgency of urination To mirabegron ER (Myrbetriq) 25 mg PO DAILY 90 days 90 tabs 1RF N30.10 - Interstitial cystitis (chronic) without hematuria, N32.81 - Overactive bladder, R35.1 - Nocturia, R39.15 - Urgency of urination Patient Instructions: The patient had an opportunity to ask questions regarding the treatment plan. All questions were answered. Physical exam, labs, and imaging were discussed and reviewed in detail. As well as risks, benefits, and discussion of treatment choices. No major barriers to understanding were identified. The patient expressed understanding and agreement with the above treatment plan. The patient was made aware they should contact our office by phone for worsening of their current condition, the appearance of new symptoms, or with any questions or concerns. Compliance is encouraged with any medications and follow up testing that is ordered. It is a privilege to be allowed the opportunity to participate in? your urological care.? Again, if you have any questions or concerns If you have any questions or concerns please do not hesitate to contact me. The office is [phone]. This note is constructed using voice recognition software. While every effort has been made to ensure accuracy equipment washer errors may have been included. Yours sincerely, EPIFANIO Cartwright Coding Level of Care Code Est Pt Level 3 (69171) Complex EM visit Add On G2211 Diagnoses Sensation of pressure in bladder area R39.89 Recurrent UTI (urinary tract infection) N39.0 Urinary frequency R35.0 Urinary urgency R39.15 CPT Codes Post Residual Void - PVR CPT Code: 29411-Uarj Void Residual by ultrasound ([id number])
== END 2024-01-25 09:00 | disposition home or self-care (01) ==
PROVIDERS: Visit Provider Nurse Practitioner Family
DX: R39.89 Other symptoms and signs involving the genitourinary system (principal); N39.0 Urinary tract infection, site not specified; R35.0 Frequency of micturition; R39.15 Urgency of urination; Z13.9 Encounter for screening, unspecified
CPT/HCPCS: 99213; G2211

== ENCOUNTER → 2024-01-25 08:29 | Outpatient (BNVA) | payer OTHER, SELFPAY | PROVIDERS: Visit Provider Nurse Practitioner Family | DX: R39.89 Other symptoms and signs involving the genitourinary system (principal); R35.0 Frequency of micturition; R39.15 Urgency of urination; N39.0 Urinary tract infection, site not specified | CPT/HCPCS: 51798; 81003; 99212 ==

== ENCOUNTER 2024-07-15 08:11 | Outpatient (AMB) | payer OTHER, SELFPAY ==
--- NOTE | 2024-07-15 08:24 | A.OFFVIS_ITS ---
Intake Visit Reasons: 3M follow up- r/s Intake Note: Patient presents today for follow up on: recurrent uti and dysuria Urology Medications: estradiol, myrbetriq, and macrobid Blood Thinner: none PVR: 0ml's Supervisor Bakery Sanitation Required: Yes Supervisor Bakery Sanitation Name: Viral [id number] Accompanied by: Allergies No Known Allergies [No Known Allergies*] Allergy (Verified 07/15/24 09:13) Medication List - Last Reconciled 07/15/24 by EPIFANIO Cartwright amlodipine 5 mg PO DAILY atorvastatin 10 mg PO BEDTIME 90 days blood sugar diagnostic (FreeStyle Lite Strips) four times a day cholecalciferol (vitamin D3) 50 mcg PO DAILY cyanocobalamin (vitamin B-12) 500 mcg sublingual .Every other Day 90 days dapagliflozin propanediol (Farxiga) 10 mg PO DAILY estradiol 0.01%(0.1mg/gram) (Estrace) 1 g vaginal 3XW 30 days FreeStyle Lancets (lancets) 3 times a day NS insulin degludec (Tresiba FlexTouch U-100 insulin) 12 units (0.12 mL) subcut BEDTIME 90 days insulin lispro-aabc (Lyumjev KwikPen U-100 Insulin) 3 - 4 units (0.03 - 0.04 mL) subcut TID 90 days losartan 100 mg PO DAILY metformin 1,000 mg PO BID 90 days mirabegron ER (Myrbetriq) 25 mg PO DAILY 90 days pen needle, diabetic (BD Ultra-Fine Trisha Pen Needle) As directed four times a day HPI Comments Details: Josy is a pleasant 58-year-old Peruvian speaking female patient of Dr. Poe who is accompanied by her at todays visit as well as her daughter who is present on the phone. She has a PMH of Diabetes, HTN, and dyslipidemia, vitamin- D deficiency, vitamin B12 deficiency, hyponatremia. She presents to the office today for a follow up her recurrent UTIs. In discussion with the patient today she reports feeling episodes of bladder pressure have returned despite compliance with 25 mg of Myrbetriq daily. She discusses having gone to [place] and following up with her doctor there and he readjusted her diabetes medication and feels this could be a potential cause of bladder pressure she has been experiencing. Previous workup has included a Microgen 11/24 that noted E coli, prevotella bivia,, and gardnerella vaginalis. She has since completed flagyl 375 mg BID x 7 days and bactrim DS BID x 14 days. In discussion with the patient today she reports having ran out of her Estrace cream and has not been utilizing this as prescribed. She does report compliance with Myrbetriq 25 mg daily. In office urinalysis results reviewed with the patient today. PVR 0ml's. We discussed at length importance of taking medications as prescribed as well as discussing her change in medications with her provider [place] the [place] compared to [place]. Previous workup has also included a retroperitoneal ultrasound noting bilateral kidneys with no calculi, lesions, and or hydronephrosis. The bladder is well distended and normal. She otherwise denies incontinence, nocturia, hematuria, foul smelling urine, changes to urinary stream, flank pain, fever, and or chills. Discussed at length importance of managing diabetes for continuation in improvement in urinary symptoms as well as overall health and well-being. She otherwise offers no issues or concerns at this time. [facility] Medical History Vitamin D deficiency Diabetic nephropathy associated with type 2 diabetes mellitus B12 deficiency Hypertension Hyponatremia [facility] (current) use of insulin Diabetes type 2, uncontrolled Dyslipidemia Surgical History Hx of cataract surgery Family History Father Gastric cancer Mother Diabetes Social History Household Members: Spouse Alcohol intake: never Patient Tobacco Use Status: Never used Tobacco Review of Systems Const All systems reviewed & are unremarkable except as noted in HPI and below Reports as per HPI Eyes Reports no additional complaints ENT Reports no additional complaints Card Reports no additional complaints Resp Reports no additional complaints GI Reports no additional complaints Reports as per HPI Musc Reports no additional complaints Neuro Reports no additional complaints Psych Reports no additional complaints Endo Reports as per HPI Butch/Lymph Reports no additional complaints Aller/Immun Reports no additional complaints Physical Exam Const General: cooperative, healthy appearing, comfortable, no acute distress, well developed, alert and awake Orientation/consciousness: patient oriented x3 Limitations: language barrier HEENT Head: Yes normal to inspection, Yes normocephalic and Yes atraumatic Ears: hearing grossly normal bilaterally Eyes General: appearance normal, both eyes and all related structures Neck Neck: Yes normal visual inspection and Yes trachea midline Chest Chest palpation & inspection: normal inspection of the chest Resp Effort & Inspection: normal respiratory effort and able to speak in complete sentences Cardio Rate: regular rate GI Inspection: Yes normal to inspection General: Yes no CVA tenderness Back/Spine/Pelvis Back: no CVA tenderness Skin General skin exam: no rashes or lesions noted Neuro General: patient oriented x3 Extrem General: Yes normal to inspection Psych Appearance: grossly normal and well kempt Mental Status: mental status grossly normal Speech and movement: Normal speech and movement present and Clear speech present Affect: normal affect and Sad affect present Attitude: cooperative Thought process: Normal thought process present Thought content: Normal thought content present Insight: Fair insight present (Psych) Judgement: Fair judgement present (Psych) Office Procedures Post Void Residual Post Residual Void Post Void Residual (PVR): 0 [id number]-Kcfx Void Residual by ultrasound Results AMB Urinalysis, Automated UA Leukoctes 15 Grabiel/uL Last Edit by [employer] on 07/15/24 08:38 UA Nitrite Last Edit by [employer] on 07/15/24 08:38 UA Urobilinogen 0.2 mg/dL Last Edit by [employer] on 07/15/24 08:38 UA Protein 0 mg/dL Last Edit by [employer] on 07/15/24 08:38 UA pH 6.0 Last Edit by [employer] on 07/15/24 08:38 UA Blood 0 Terrell/uL Last Edit by [employer] on 07/15/24 08:38 UA Specific [place] 1.010 Last Edit by [employer] on 07/15/24 08:38 UA Ketone Last Edit by [employer] on 07/15/24 08:38 UA Bilirubin 0 mg/dL Last Edit by Juno Starks on 07/15/24 08:38 UA Glucose 500 mg/dL Last Edit by Juno Starks on 07/15/24 08:38 Results Reviewed Results Reviewed: Laboratory Last Values Urine pH (Auto) 6.0 07/15/24 08:29 Specific [place] (Auto) 1.010 07/15/24 08:29 Urine Protein (Auto) 0 mg/dL 07/15/24 08:29 Glucose (UA)(Auto) 500 mg/dL 07/15/24 08:29 Urine Blood (Auto) 0 Terrell/uL 07/15/24 08:29 Urine Bilirubin (Auto) 0 mg/dL 07/15/24 08:29 Urine Urobilinogen (Auto) 0.2 mg/dL 07/15/24 08:29 Leukocyte Esterase (Auto) 15 Grabiel/uL 07/15/24 08:29 Assessment & Plan Assessment & Plan (1) Urinary urgency: Code(s): R39.15 - Urgency of urination Category: Medical (2) Urinary frequency: Code(s): R35.0 - Frequency of micturition Category: Medical (3) Sensation of pressure in bladder area: Code(s): R39.89 - Other symptoms and signs involving the genitourinary system Category: Medical (4) Recurrent UTI (urinary tract infection): Code(s): N39.0 - Urinary tract infection, site not specified Category: Medical Plan In office urinalysis results reviewed with the patient today; as noted above. PVR 0 mL. Discussed at length potential causes for lower urinary tract symptoms patient was experiencing. Continue Myrbetriq as discussed and prescribed. Restart Estrace cream as discussed; refill provided. Discussed importance of following up with PCP/endocrinology regarding change in medication with diabetes with [place] provider. Discussed at length importance of managing diabetes for improvement in lower urinary tract symptoms. Discussed possible near future in office cystoscopy for further assessment evaluation if symptoms arise and or worsen Discussed UTI prevention with D mannose supplement, vitamin-C, increasing fluid intake, behavioral therapy with timed voiding, perineal hygiene and postcoital voiding, and management of constipation with stool softeners and increased fiber intake. Follow-up in3 months with PVR; or sooner with any issues, concerns, and or questions. Orders: Orders AMB Urinalysis Automated Today Z13.9 - Encounter for screening, unspecified AMB Post Void Residual by ultrasound Today R39.15 - Urgency of urination Medications: New estradiol 0.01%(0.1mg/gram) (Estrace) Pea-sized amount to urethra 3 times per week 1 g vaginal 3XW 42.5 grams 3RF 30 days Discontinued nitrofurantoin macrocrystal must administer with a meal/food Discontinued Reason: Doctor's Order 50 mg PO BEDTIME 90 days 90 caps 1RF estradiol (Vagifem) Discontinued Reason: Doctor's Order 10 mcg vaginal 2XW 30 days 9 tabs 4RF Patient Instructions: The patient had an opportunity to ask questions regarding the treatment plan. All questions were answered. Physical exam, labs, and imaging were discussed and reviewed in detail. As well as risks, benefits, and discussion of treatment choices. No major barriers to understanding were identified. The patient expressed understanding and agreement with the above treatment plan. The patient was made aware they should contact our office by phone for worsening of their current condition, the appearance of new symptoms, or with any questions or concerns. Compliance is encouraged with any medications and follow up testing that is ordered. It is a privilege to be allowed the opportunity to participate in? your urological care.? Again, if you have any questions or concerns If you have any questions or concerns please do not hesitate to contact me. The office is [phone]. This note is constructed using voice recognition software. While every effort has been made to ensure accuracy foundry process engineer errors may have been included. Yours sincerely, EPIFANIO Cartwright Coding Level of Care Code Est Pt Level 4 (99387) Diagnoses Urinary urgency R39.15 Urinary frequency R35.0 Sensation of pressure in bladder area R39.89 Recurrent UTI (urinary tract infection) N39.0 CPT Codes Post Residual Void - PVR CPT Code: 99038-Pgox Void Residual by ultrasound ([id number]) Time Spent (min) 35
== END 2024-07-15 09:11 | disposition home or self-care (01) ==
PROVIDERS: Visit Provider Nurse Practitioner Family
DX: R39.15 Urgency of urination (principal); R35.0 Frequency of micturition; R39.89 Other symptoms and signs involving the genitourinary system; N39.0 Urinary tract infection, site not specified; Z13.9 Encounter for screening, unspecified
CPT/HCPCS: 99214

== ENCOUNTER → 2024-07-15 08:11 | Outpatient (BNVA) | payer OTHER, SELFPAY | PROVIDERS: Visit Provider Nurse Practitioner Family | DX: R39.15 Urgency of urination (principal); R35.0 Frequency of micturition; R30.0 Dysuria; R39.89 Other symptoms and signs involving the genitourinary system; N39.0 Urinary tract infection, site not specified | CPT/HCPCS: 51798; 81003; 99212 ==

== ENCOUNTER 2024-09-05 09:35 | Outpatient (REF) | payer OTHER, SELFPAY ==
--- NOTE | ~2024-09-05 | MM_ITS ---
EXAMINATION: MM SCREENING DIGITAL BREAST TOMOSYNTHESIS, BILATERAL CLINICAL INFORMATION: Screening. Asymptomatic. COMPARISON: Mammography: Comparison is made with available priors TECHNIQUE: Digital breast mammography with tomosynthesis is performed in both the craniocaudal and mediolateral oblique views along with computer-aided detection (CAD). FINDINGS: The breasts are heterogeneously dense, which may obscure small masses (ACR BI-RADS breast composition Category c). There are no significant masses, abnormal calcifications, or other abnormalities. MM/MM tomosynthesis screening BI IMPRESSION: No mammographic evidence of malignancy. ASSESSMENT: BI-RADS BI-RADS 1 - Negative RECOMMENDATION: Routine annual mammography screening. 1 year F/U This examination should not preclude the clinical evaluation of a suspicious palpable abnormality. This patient's information was entered into a reminder system with a target due date for their next mammogram. Electronically signed by: Muareen Newberry DO 09/14/2024 08:46 AM [facility]
== END 2024-09-05 09:36 | disposition home or self-care (01) ==
LOC: HO.MAMMO 09:35
PROVIDERS: PCP Physician Assistant Medical; Visit Provider Physician Assistant Medical
DX: Z12.31 Encounter for screening mammogram for malignant neoplasm of breast (principal)
CPT/HCPCS: 77063; 77067

== ENCOUNTER → 2024-09-05 09:45 | Outpatient (BNV) | payer OTHER, SELFPAY | PROVIDERS: PCP Physician Assistant Medical; Visit Provider Internal Medicine | DX: Z12.31 Encounter for screening mammogram for malignant neoplasm of breast (principal) | CPT/HCPCS: 77063; 77067 ==

== ENCOUNTER 2024-10-15 09:26 | Outpatient (AMB) | payer OTHER, SELFPAY ==
--- NOTE | 2024-10-15 09:27 | MHC.OFFVIS ---
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 Operations Specialist Language: Bengali [employer] Operations Specialist Services: Wildland Fire Operations Specialist Present Wild[employer] Operations Specialist Name: Dimitris [id number] Accompanied by: Allergies No Known Allergies [No Known Allergies*] Allergy (Verified 10/15/24 09:46) Medication List - Last Reconciled 10/15/24 by EPIFANIO Cartwright amlodipine 5 mg PO DAILY atorvastatin 10 mg PO BEDTIME 90 days blood sugar diagnostic (FreeStyle Lite Strips) four times a day cholecalciferol (vitamin D3) 50 mcg PO DAILY cyanocobalamin (vitamin B-12) 500 mcg sublingual .Every other Day 90 days dapagliflozin propanediol (Farxiga) 10 mg PO DAILY estradiol 0.01%(0.1mg/gram) (Estrace) 1 g vaginal 3XW 30 days FreeStyle Lancets (lancets) 3 times a day NS insulin degludec (Tresiba FlexTouch U-100 insulin) 12 units (0.12 mL) subcut BEDTIME 90 days insulin lispro-aabc (Lyumjev KwikPen U-100 Insulin) 3 - 4 units (0.03 - 0.04 mL) subcut TID 90 days losartan 100 mg PO DAILY metformin 1,000 mg PO BID 90 days mirabegron ER (Myrbetriq) 25 mg PO DAILY 90 days pen needle, diabetic (BD Ultra-Fine Trisha Pen Needle) As directed four times a day HPI Comments Details: Josy is a pleasant 59-year-old Bengali speaking female patient of Dr. Poe who is accompanied by her at todays visit. She has a PMH of Diabetes, HTN, and dyslipidemia, vitamin-D deficiency, vitamin B12 deficiency, hyponatremia. She presents to the office today for a follow up her recurrent UTIs. In discussion with the patient today she to be doing and feeling well. She reports compliance with Myrbetriq in Estrace cream as prescribed. She reports previous bladder pressure she had been experiencing has improved however she has been noting foul-smelling urine as well as cloudy urine. In office urinalysis results reviewed with the patient today. Negative leukocytes positive nitrates. 3+ glucosuria. PH 5.0. We discussed at length the importance of adequate hydration relation to lower urinary tract symptoms, recurrent urinary tract infections, and overall health and well-being. Previous workup has included a Microgen 11/24 that noted E coli, prevotella bivia, and gardnerella vaginalis. Previous workup has also included a retroperitoneal ultrasound 02/23 noting bilateral kidneys with no calculi, lesions, and or hydronephrosis. The bladder is well distended and normal. She otherwise denies incontinence, nocturia, hematuria, changes to urinary stream, flank pain, fever, and or chills. Discussed at length importance of managing diabetes for continuation in improvement in urinary symptoms as well as overall health and well-being. PVR 0ml'sShe otherwise offers no issues or concerns at this time. [facility] Medical History Vitamin D deficiency Diabetic nephropathy associated with type 2 diabetes mellitus B12 deficiency Hypertension Hyponatremia skilled nursing (current) use of insulin Diabetes type 2, uncontrolled Dyslipidemia Surgical History Hx of cataract surgery Family History Father Gastric cancer Mother Diabetes Social History Household Members: Spouse Alcohol intake: never Patient Tobacco Use Status: Never used Tobacco Physical Exam Const General: cooperative, healthy appearing, comfortable, no acute distress, well developed, alert and awake Orientation/consciousness: patient oriented x3 Limitations: language barrier HEENT Head: Yes normal to inspection Ears: hearing grossly normal bilaterally Eyes General: appearance normal, both eyes and all related structures Neck Neck: Yes normal visual inspection and Yes trachea midline Chest Chest palpation & inspection: normal inspection of the chest Resp Effort & Inspection: normal respiratory effort and able to speak in complete sentences Cardio Rate: regular rate GI Inspection: Yes normal to inspection General: Yes no CVA tenderness Back/Spine/Pelvis Back: no CVA tenderness Skin General skin exam: no rashes or lesions noted Neuro General: patient oriented x3 Extrem General: Yes normal to inspection Psych Appearance: grossly normal and well kempt Mental Status: mental status grossly normal Speech and movement: Normal speech and movement present and Clear speech present Affect: normal affect and Sad affect present Attitude: cooperative Thought process: Normal thought process present Thought content: Normal thought content present Insight: Fair insight present (Psych) Judgement: Fair judgement present (Psych) Office Procedures Post Void Residual Post Residual Void Post Void Residual (PVR): 0 [id number]-[id number] Void Residual by ultrasound Results AMB Urinalysis, Automated UA Leukoctes 0 Grabiel/uL Last Edit by Georgette Hebert [facility] on 10/15/24 09:45 UA Nitrite Positive Last Edit by Georgette Hebert [facility] on 10/15/24 09:45 UA Urobilinogen 0.2 mg/dL Last Edit by Georgtete Hebert [facility] on 10/15/24 09:45 UA Protein 0 mg/dL Last Edit by Georgette Hebert [facility] on 10/15/24 09:45 UA pH 5.0 Last Edit by Georgette Hebert [facility] on 10/15/24 09:45 UA Blood 10 Terrell/uL Last Edit by Georgette Hebert [facility] on 10/15/24 09:45 UA Specific [place] 1.010 Last Edit by Georgette Hebert [facility] on 10/15/24 09:45 UA Ketone Negative Last Edit by Georgette Hebert [facility] on 10/15/24 09:45 UA Bilirubin 0 mg/dL Last Edit by Georgette Hebert [facility] on 10/15/24 09:45 UA Glucose 60 mg/dL Last Edit by Georgette Hebert [facility] on 10/15/24 09:45 Assessment & Plan Assessment & Plan (1) Recurrent UTI (urinary tract infection): Code(s): N39.0 - Urinary tract infection, site not specified Category: Medical (2) Foul smelling urine: Code(s): R82.90 - Unspecified abnormal findings in urine Category: Medical (3) Cloudy urine: Code(s): R82.90 - Unspecified abnormal findings in urine Category: Medical (4) Sensation of pressure in bladder area: Code(s): R39.89 - Other symptoms and signs involving the genitourinary system Category: Medical (5) Urinary frequency: Code(s): R35.0 - Frequency of micturition Category: Medical (6) Urinary urgency: Code(s): R39.15 - Urgency of urination Category: Medical Plan In office urinalysis results reviewed with the patient today; will send for microgen; will await results for potential treatment. PVR 0 mL. Discussed at length potential causes for lower urinary tract symptoms patient was experiencing. Continue Myrbetriq and Estrace as prescribed. Discussed at length importance of managing diabetes for improvement in lower urinary tract symptoms. Discussed possible near future in office cystoscopy for further assessment evaluation if symptoms arise and or worsen Discussed UTI prevention with D mannose supplement, vitamin-C, increasing fluid intake, behavioral therapy with timed voiding, perineal hygiene and postcoital voiding, and management of constipation with stool softeners and increased fiber intake. Follow-up in 3 months with PVR; or sooner with any issues, concerns, and or questions. Orders: Orders AMB Post Void Residual by ultrasound Today R33.9 - Retention of urine, unspecified Urine Cytology Today N39.0 - Urinary tract infection, site not specified AMB Urinalysis Automated Today Z13.9 - Encounter for screening, unspecified Patient Instructions: The patient had an opportunity to ask questions regarding the treatment plan. All questions were answered. Physical exam, labs, and imaging were discussed and reviewed in detail. As well as risks, benefits, and discussion of treatment choices. No major barriers to understanding were identified. The patient expressed understanding and agreement with the above treatment plan. The patient was made aware they should contact our office by phone for worsening of their current condition, the appearance of new symptoms, or with any questions or concerns. Compliance is encouraged with any medications and follow up testing that is ordered. It is a privilege to be allowed the opportunity to participate in? your urological care.? Again, if you have any questions or concerns If you have any questions or concerns please do not hesitate to contact me. The office is [phone]. This note is constructed using voice recognition software. While every effort has been made to ensure accuracy manager pool errors may have been included. Yours sincerely, EPIFANIO Cartwright Coding Level of Care Code Est Pt Level 4 (07602) Complex EM visit Add On G2211 Diagnoses Recurrent UTI (urinary tract infection) N39.0 Foul smelling urine R82.90 Cloudy urine R82.90 Sensation of pressure in bladder area R39.89 Urinary frequency R35.0 Urinary urgency R39.15 CPT Codes Post Residual Void - PVR CPT Code: 40869-Cvqw Void Residual by ultrasound ([id number])
== END 2024-10-15 10:02 | disposition home or self-care (01) ==
LOC: HO.HUSH 09:26
PROVIDERS: PCP Physician Assistant Medical; Visit Provider Nurse Practitioner Family
DX: N39.0 Urinary tract infection, site not specified (principal); R82.90 Unspecified abnormal findings in urine; R39.89 Other symptoms and signs involving the genitourinary system; R35.0 Frequency of micturition; R39.15 Urgency of urination; Z13.9 Encounter for screening, unspecified
CPT/HCPCS: 99214; G2211

== ENCOUNTER 2024-10-15 09:26 | Outpatient (REF) | payer OTHER, SELFPAY ==
[2024-10-15 17:11] LABS: Urine Cytology See Pathology rpt
== END 2024-10-15 09:27 | disposition home or self-care (01) ==
LOC: HO.LAB 09:26
PROVIDERS: PCP Physician Assistant Medical; Visit Provider Nurse Practitioner Family
DX: N39.0 Urinary tract infection, site not specified (principal); R82.90 Unspecified abnormal findings in urine; R39.89 Other symptoms and signs involving the genitourinary system; R35.0 Frequency of micturition; R39.15 Urgency of urination
CPT/HCPCS: 51798; 81003; 88112; 99212

== ENCOUNTER 2025-01-20 10:32 | Outpatient (AMB) | payer OTHER, SELFPAY ==
--- NOTE | 2025-01-20 10:47 | A.OFFVIS_ITS ---
Intake Visit Reasons: 3m/PVR Intake Note: Patient presents today for follow up on: frequency, urgency, and recurrent uti Urology Med: Estradiol, Myrbetriq Antibiotic Allergy: None Blood Thinner: None PVR: 58ml's Hides Inspector Required: Yes Hides Inspector Language: Sierra Leonean Hides Inspector Services: Hides Inspector Present Hides Inspector Name: [id number] Accompanied by: Allergies No Known Allergies [No Known Allergies*] Allergy (Verified 01/20/25 11:15) Medication List - Last Reconciled 01/20/25 by EPIFANIO Cartwright amlodipine 5 mg PO DAILY atorvastatin 10 mg PO BEDTIME 90 days blood sugar diagnostic (FreeStyle Lite Strips) four times a day cholecalciferol (vitamin D3) 50 mcg PO DAILY cyanocobalamin (vitamin B-12) 500 mcg sublingual .Every other Day 90 days dapagliflozin propanediol (Farxiga) 10 mg PO DAILY estradiol 0.01%(0.1mg/gram) (Estrace) 1 g vaginal 3XW 30 days FreeStyle Lancets (lancets) 3 times a day NS insulin degludec (Tresiba FlexTouch U-100 insulin) 12 units (0.12 mL) subcut BEDTIME 90 days insulin lispro-aabc (Lyumjev KwikPen U-100 Insulin) 3 - 4 units (0.03 - 0.04 mL) subcut TID 90 days losartan 100 mg PO DAILY metformin 1,000 mg PO BID 90 days mirabegron ER (Myrbetriq) 25 mg PO DAILY 90 days pen needle, diabetic (BD Ultra-Fine Trisha Pen Needle) As directed four times a day HPI Comments Details: Josy is a pleasant 59-year-old Sierra Leonean speaking female patient of Dr. Poe who is accompanied by her at todays visit. She has a PMH of Diabetes, HTN, and dyslipidemia, vitamin-D deficiency, vitamin B12 deficiency, hyponatremia. She presents to the office today for a follow up her recurrent UTIs. In discussion with the patient today she to be doing and feeling well. She discusses lower urinary tract symptoms she had been experiencing at her last office visit has since subsided. She reports compliance with Estrace and Myrbetriq as prescribed. Most recent microgen results were reviewed with the patient and her today 10/28 Escherichia marmotae, lactobacillus gasseri, E coli, phocaeicola dorei, Enterococcus faecalis, prevotella bivia, ans gardnerella vaginalis. Previous workup has also included a retroperitoneal ultrasound 02/23 noting bilateral kidneys with no calculi, lesions, and or hydronephrosis. The bladder is well distended and normal. She denies incontinence, nocturia, hematuria, changes to urinary stream, flank pain, fever, and or chills. Discussed at length importance of managing diabetes for continuation in improvement in urinary symptoms as well as overall health and well-being. PVR 58ml's. She otherwise offers no issues or concerns at this time. [facility] Medical History Vitamin D deficiency Diabetic nephropathy associated with type 2 diabetes mellitus B12 deficiency Hypertension Hyponatremia residential (current) use of insulin Diabetes type 2, uncontrolled Dyslipidemia Surgical History Hx of cataract surgery Family History Father Gastric cancer Mother Diabetes Social History Household Members: Spouse Alcohol intake: never Patient Tobacco Use Status: Never used Tobacco Review of Systems Const All systems reviewed & are unremarkable except as noted in HPI and below Reports as per HPI Eyes Reports no additional complaints ENT Reports no additional complaints Card Reports no additional complaints Resp Reports no additional complaints GI Reports no additional complaints Reports as per HPI Musc Reports no additional complaints Neuro Reports no additional complaints Psych Reports no additional complaints Endo Reports as per HPI Butch/Lymph Reports no additional complaints Aller/Immun Reports no additional complaints Physical Exam Const General: cooperative, healthy appearing, comfortable, no acute distress, well developed, alert and awake Orientation/consciousness: patient oriented x3 Limitations: language barrier HEENT Head: Yes normal to inspection Ears: hearing grossly normal bilaterally Eyes General: appearance normal, both eyes and all related structures Neck Neck: Yes normal visual inspection and Yes trachea midline Chest Chest palpation & inspection: normal inspection of the chest Resp Effort & Inspection: normal respiratory effort and able to speak in complete sentences Cardio Rate: regular rate GI Inspection: Yes normal to inspection General: Yes no CVA tenderness Back/Spine/Pelvis Back: no CVA tenderness Skin General skin exam: no rashes or lesions noted Neuro General: patient oriented x3 Extrem General: Yes normal to inspection Psych Appearance: grossly normal and well kempt Mental Status: mental status grossly normal Speech and movement: Normal speech and movement present and Clear speech present Affect: normal affect and Sad affect present Attitude: cooperative Thought process: Normal thought process present Thought content: Normal thought content present Insight: Fair insight present (Psych) Judgement: Fair judgement present (Psych) Office Procedures Post Void Residual Post Residual Void Post Void Residual (PVR): 58 [id number] Void Residual by ultrasound Results AMB Urinalysis, Automated UA Leukoctes 0 Grabiel/uL Last Edit by Zweemie on 01/20/25 11:06 UA Nitrite Last Edit by Zweemie on 01/20/25 11:06 UA Urobilinogen 0.2 mg/dL Last Edit by Zweemie on 01/20/25 11:06 UA Protein 0 mg/dL Last Edit by Zweemie on 01/20/25 11:06 UA pH 5.5 Last Edit by Zweemie on 01/20/25 11:06 UA Blood 10 Terrell/uL Last Edit by Zweemie on 01/20/25 11:06 UA Specific [place] 1.020 Last Edit by Zweemie on 01/20/25 11:06 UA Ketone Last Edit by Zweemie on 01/20/25 11:06 UA Bilirubin 0 mg/dL Last Edit by Zweemie on 01/20/25 11:06 UA Glucose 1000 mg/dL Last Edit by Zweemie on 01/20/25 11:06 Results Reviewed Results Reviewed: Laboratory Last Values Urine pH (Auto) 5.5 01/20/25 11:05 Specific [place] (Auto) 1.020 01/20/25 11:05 Urine Protein (Auto) 0 mg/dL 01/20/25 11:05 Glucose (UA)(Auto) 1000 mg/dL 01/20/25 11:05 Urine Blood (Auto) 10 Terrell/uL 01/20/25 11:05 Urine Bilirubin (Auto) 0 mg/dL 01/20/25 11:05 Urine Urobilinogen (Auto) 0.2 mg/dL 01/20/25 11:05 Leukocyte Esterase (Auto) 0 Grabiel/uL 01/20/25 11:05 Assessment & Plan Assessment & Plan (1) Recurrent UTI (urinary tract infection): Code(s): N39.0 - Urinary tract infection, site not specified Category: Medical (2) Dysuria: Code(s): R30.0 - Dysuria Category: Medical (3) Sensation of pressure in bladder area: Code(s): R39.89 - Other symptoms and signs involving the genitourinary system Category: Medical (4) Urinary frequency: Code(s): R35.0 - Frequency of micturition Category: Medical (5) Urinary urgency: Code(s): R39.15 - Urgency of urination Category: Medical (6) Foul smelling urine: Code(s): R82.90 - Unspecified abnormal findings in urine Category: Medical (7) Cloudy urine: Code(s): R82.90 - Unspecified abnormal findings in urine Category: Medical Plan In office urinalysis results reviewed with the patient today; as noted above. PVR 58 mL. Recent microgen results were reviewed with the patient today; as noted above. Patient reports lower urinary tract symptoms she had been experiencing has since subsided. We discussed importance of adequate hydration relation to lower urinary tract symptoms as well as overall health and well-being. Continue Estrace cream and Myrbetriq as discussed and prescribed. She currently denies any bothersome urinary issues or concerns. She reports be happy with current voiding parameters. We discussed the importance of management and diabetes for improvement in lower urinary tract symptoms as well as overall health and well-being. We discussed follow-up in 3 months with PVR however patient will be in [place] Will follow-up in 6 months when she returns; or sooner with any issues, concerns, and or questions. Orders: Orders AMB Post Void Residual by ultrasound Today R39.15 - Urgency of urination AMB Urinalysis Automated Today Z13.9 - Encounter for screening, unspecified Patient Instructions: The patient had an opportunity to ask questions regarding the treatment plan. All questions were answered. Physical exam, labs, and imaging were discussed and reviewed in detail. As well as risks, benefits, and discussion of treatment choices. No major barriers to understanding were identified. The patient expressed understanding and agreement with the above treatment plan. The patient was made aware they should contact our office by phone for worsening of their current condition, the appearance of new symptoms, or with any questions or concerns. Compliance is encouraged with any medications and follow up testing that is ordered. It is a privilege to be allowed the opportunity to participate in? your urological care.? Again, if you have any questions or concerns If you have any questions or concerns please do not hesitate to contact me. The office is [phone]. This note is constructed using voice recognition software. While every effort has been made to ensure accuracy instrument setter errors may have been included. Yours sincerely, EPIFANIO Cartwright Coding Level of Care Code Est Pt Level 3 (28564) Complex EM visit Add On G2211 Diagnoses Recurrent UTI (urinary tract infection) N39.0 Dysuria R30.0 Sensation of pressure in bladder area R39.89 Urinary frequency R35.0 Urinary urgency R39.15 Foul smelling urine R82.90 Cloudy urine R82.90 CPT Codes Post Residual Void - PVR CPT Code: 81595-Xnwg Void Residual by ultrasound ([id number])
== END 2025-01-20 11:14 | disposition home or self-care (01) ==
LOC: HO.HUSH 10:32
PROVIDERS: PCP Physician Assistant Medical; Visit Provider Nurse Practitioner Family
DX: N39.0 Urinary tract infection, site not specified (principal); R30.0 Dysuria; R39.89 Other symptoms and signs involving the genitourinary system; R35.0 Frequency of micturition; R39.15 Urgency of urination; R82.90 Unspecified abnormal findings in urine; Z13.9 Encounter for screening, unspecified
CPT/HCPCS: 99213; G2211

== ENCOUNTER → 2025-01-20 10:32 | Outpatient (BNVA) | payer OTHER, SELFPAY | PROVIDERS: PCP Physician Assistant Medical; Visit Provider Nurse Practitioner Family | DX: N39.0 Urinary tract infection, site not specified (principal); R30.0 Dysuria; R39.89 Other symptoms and signs involving the genitourinary system; R35.0 Frequency of micturition; R39.15 Urgency of urination; R82.90 Unspecified abnormal findings in urine | CPT/HCPCS: 51798; 81003; 99212 ==